=== PATIENT | born 1990 | race African-American/Black ===

== ENCOUNTER 2019-05-09 22:13 | Emergency (ER) | payer MEDICAID ==
[~2019-05-09] VITALS: Ht 170.2 cm; Wt 59.0 kg
[2019-05-09 22:25] VITALS: Ht 170.2 cm; Wt 59.0 kg
[2019-05-10 01:28] LABS: PLATELET COUNT 287 x10^3mcL
[2019-05-10 01:29] LABS: CALCIUM 9.1 mg/dL (8.5-10.1); CARBON DIOXIDE 29.5 mmol/L (21-32); CHLORIDE SERUM 96 mmol/L; GFR1 > 60 mL/min; GLUCOSE SERUM 68 mg/dL; POTASSIUM SERUM 3.6 mmol/L; RED CELL DISTRIBUTION WIDTH 14.6 %; SODIUM SERUM 133 mmol/L (136-145)
[2019-05-10 01:33] LABS: ALBUMIN 4.6 g/dL (3.4-5.0); ALKALINE PHOSPHATASE 65 U/L (46-116); ALT/SGPT 81 U/L; AMYLASE 120 U/L (25-115); AST/SGOT 106 U/L; BILIRUBIN TOTAL 0.69 mg/dL; LIPASE 55 IU/L; TOTAL PROTEIN, SERUM 10.4 g/dL (6.4-8.2)
[2019-05-10 01:37] LABS: UA SPECIFIC GRAVITY >=1.030; microscopic required? YES; urine erythrocyte NEGATIVE
[2019-05-10 02:32] VITALS: BP 115/70
[2019-05-12 05:08] LABS: RAPID PLASMA REAGIN Reactive (Non Reactive)
== END 2019-05-10 03:00 | disposition home or self-care (01) ==
LOC: ED 22:13
PROVIDERS: Emergency Medicine
DX: K62.89 Other specified diseases of anus and rectum (principal); E11.9 Type 2 diabetes mellitus without complications; F17.200 Nicotine dependence, unspecified, uncomplicated
CPT/HCPCS: 36415; 87491; 87591; J0561; J0696